=== PATIENT | male | born 1950 | race Caucasian/White ===

== ENCOUNTER → 2017-08-02 | Outpatient (CLI) | payer MEDICARE ==
[~2017-08-02] MED LIST: CONTRAST GIVEN MC PRN; HYDR-2758 PO; cymbalta PO
[2017-08-02] MEDS: IOHEXOL 300 MG/ML 75 ML VIAL IV ONE (11:47)
[2017-08-02] MEDS: IOHEXOL 240 MG/ML 50ML VIAL. PO ONE (11:47)
--- NOTE | 2017-08-02 15:12 | RAD ---
CT chest, abdomen and pelvis Indication: Weight loss, chest abdominal pain. Technique: CT chest, abdomen and pelvis with 75 mL of Omnipaque 300 IV and 30 mL of Omnipaque 240 by mouth with multi planar reformats. Comparison: None Findings: CT chest: History neck base. No axillary, mediastinal or hilar adenopathy. Heart is normal in size. No pericardial or pleural effusion. Erosion is noted of the manubrium with soft tissue component. There is no invasion of the prevascular space. No soft tissue gas. Plate like atelectasis seen within right lung base. No pulmonary nodules. CT abdomen/pelvis: Liver is normal in morphology without focal lesion. Spleen is mildly enlarged measuring 15 cm without focal lesion. No radiopaque gallstones. Fatty atrophy of the pancreatic head and uncinate process. Adrenal glands within normal limits. No suspicious renal lesions. Calcified lymph node in the gastric hepatic ligament recess No retroperitoneal or pelvic adenopathy. Multiple enlarged left inguinal lymph nodes, the largest lymph node measuring 2.2 x 1.8 cm (series 4 image 88). Scattered atherosclerotic disease of the abdominal aorta. No bowel obstruction. Normal appendix. Bladder is within normal limits. Prostate and seminal vesicles are within normal limits. Bilateral pars defect L5 vertebral body with grade 1 anterolisthesis of L5 over S1. Anterior abdominal wall superficial soft tissue nodules. Impression: 1. Significant erosive changes in the manubrium with soft tissue component concerning for chronic osteomyelitis or osseous metastasis. 2. Mild splenomegaly, nonspecific. 3. Enlarged left inguinal lymph nodes, nonspecific may be reactive or secondary to lymphoproliferative disease. Clinically correlate. 4. Right anterior abdominal wall superficial soft tissue nodules. This may represent sebaceous cysts. Correlate with physical exam. PQRS Compliance Statement: One or more of the following individualized dose reduction techniques were utilized for this examination: 1. Automated exposure control 2. Adjustment of the mA and/or kV according to patient size 3. Use of iterative reconstruction technique
== END | disposition home or self-care (01) ==
LOC: CT 13:40
PROVIDERS: ATTEND Family Medicine
DX: R10.9 Unspecified abdominal pain (principal); R16.1 Splenomegaly, not elsewhere classified; R63.4 Abnormal weight loss; Z87.891 Personal history of nicotine dependence
CPT/HCPCS: 71260; 74177; Q9966; Q9967

== ENCOUNTER → 2017-08-08 | Outpatient (CLI) | payer MEDICARE ==
[2017-08-08] VITALS (9 sets, daily range): BP systolic 84–118; BP diastolic 63–84
[~2017-08-08] VITALS: Ht 172.7 cm; Wt 73.9 kg
[~2017-08-08] MED LIST changes: +ALLO300T PO; -CONTRAST GIVEN MC PRN; +DULO60CA6 PO; +HYDR-971 PO; +LIDOCAINE 1% / SOD BICARB 8.4% 20 ML VIAL. IJ ONE; +MIDAZOLAM HCL/PF 2 MG/2 ML VIAL. IV ONE; +MIDAZOLAM HCL/PF 2 MG/2 ML VIAL. ONE; +MORP30TA83 PO; +OXYC-323 PO; +fentaNYL PF VIAL 100 MCG/2 ML VIAL ONE
[2017-08-08 08:11] LABS: BASO % 0 % (0-3); EOS % 1 % (0-3); LYMPH # 0.9 x10^3/uL (1.0-4.8); LYMPH % 9 % (24-48); MEAN CORPUSCULAR HEMOGLOBIN 30 pg (25-35); MEAN CORPUSCULAR HGB CONC 34 g/dL (31-37); MEAN CORPUSCULAR VOLUME 88 fL (79-100); MONO % 7 % (0-9); NEUT % 84 % (31-73); PLATELET COUNT 493 x10^3/uL (140-400); RED BLOOD COUNT 5.37 x10^6/uL (4.30-5.70); RED CELL DISTRIBUTION WIDTH 13.8 % (11.5-14.5); WHITE BLOOD COUNT 10.4 x10^3/uL (4.0-11.0)
[2017-08-08 08:26] LABS: INR 1.1 (0.8-1.1); PROTHROMBIN TIME PATIENT 13.9 SEC (11.7-14.0)
--- NOTE | 2017-08-10 08:52 | RAD ---
CT-guided biopsy of permeative lesion involving the sternum 08/08/2017 Indication: From the lesion involving the sternum. Findings concerning for malignancy. Subcutaneous abdominal masses and mass involving the left thigh also noted. Discussion: The risks and benefits of the procedure discussed the patient. Informed consent was obtained. Timeout procedure was performed. The anterior chest was prepped and draped using sterile barrier technique. CT imaging confirms a lytic lesion involving the sternum. 1% lidocaine with epinephrine was administered to the overlying skin and subcutaneous tissues. Under intermittent CT guidance 17-gauge guiding needle was advanced into the lesion. Multiple 18-gauge core biopsy samples were obtained. [place] were removed and manual pressure held to achieve hemostasis. No immediate competitions were identified. Impression: Technically successful CT-guided biopsy of lytic lesion involving sternum PQRS Compliance Statement: One or more of the following individualized dose reduction techniques were utilized for this examination: 1. Automated exposure control 2. Adjustment of the mA and/or kV according to patient size 3. Use of iterative reconstruction technique
--- NOTE | 2017-08-11 15:35 | PATHOLOGY ---
PATHOLOGY REPORT * * * * * * * * FINAL DIAGNOSIS: Manubrium lesion, biopsy: - Tissue insufficient for diagnosis. See comment. COMMENT: Sections of the manubrium lesion biopsy primarily reveal blood clot. There are a few minute segments of fibrous and edematous tissue which contain a mixed inflammatory infiltrate of neutrophils and chronic inflammatory cells. There are also a few scattered admixed atypical large cells having eosinophilic cytoplasm and enlarged, lobulated hyperchromatic nuclei. A limited panel of immunoperoxidase stains is obtained and yields the following results: AE1/AE3: Atypical large cells negative. CD20: Atypical large cells negative, few small lymphocytes positive. CD3: Insufficient tissue for interpretation. Myeloperoxidase: Neutrophils positive; insufficient atypical large cells for evaluation. CD31: Endothelial cells positive; insufficient atypical large cells for evaluation. In summary, there are few minute tissue fragments containing a few scattered atypical large cells within a mixed inflammatory background. There is insufficient tissue for immunophenotypic analysis. Before recommending obtaining additional biopsy material, would check the results of the leg tumor biopsy performed by Dr. Munguia. Immunoperoxidase stains performed: AE1/AE3, CD20, CD3, MPO, and CD31. (JPM:wero; 08/11/2017) REPORT ELECTRONICALLY SIGNED BY: Tomy Funes M.D. DATE/TIME: 08/11/2017 15:35 * * * * * * * * GROSS PATHOLOGY: The specimen is received in formalin, labeled "Vivek Neville, bone biopsy," and consists of multiple core biopsy fragments of mott-brown calcified and soft tissue measuring 1.1 x 1.0 x 0.1 cm in aggregate. They are entirely submitted in cassette A1 following a brief treatment in decalcification. (SDY; 08/08/2017) INITIAL CPT CODE(S): A; 14491, 26376, 80170, 84700, 98446, 32597, 69500, 77998(5) Professional services performed by [facility] at [address] [address] Technical services performed by [facility] at [address] [place] [address], [address], [place] [address]. SPECIMEN(S) RECEIVED: A.Biopsy of manubrium lesion CLINICAL HISTORY: Tumorous lesion of left thigh and chest and erosive lesion of manubrium. PATIENT: VIVEK NEVILLE /AGE: 1008/05/1950 (Age: 67) PATIENT #: [id number] ALT CASE #: SPECIMEN COLLECTION DATE: 08/08/2017 SPECIMEN RECEIVED DATE: 08/08/2017 [facility] - [id number] [address] - PHONE: [phone] * * * END OF REPORT * * *
== END | disposition home or self-care (01) ==
LOC: INTRAD 07:30
PROVIDERS: ATTEND Family Medicine
DX: M89.9 Disorder of bone, unspecified (principal); F41.9 Anxiety disorder, unspecified; F32.9 Major depressive disorder, single episode, unspecified; Z72.0 Tobacco use; Z79.01 Long term (current) use of anticoagulants; Z87.39 Personal history of other diseases of the musculoskeletal system and connective tissue
CPT/HCPCS: 20220; 36415; 77012; 85025; 85610; 88305; 88311; 88341; 88342; J2250; 99152; 99153

== ENCOUNTER → 2017-10-27 | Outpatient (CLI) | payer MEDICARE ==
[2017-10-27] MEDS: IOHEXOL 240 MG/ML 50ML VIAL. PO (09:30)
[2017-10-27] MEDS: HEPARIN PF 500 UNIT/5 ML DISP.SYRIN. IV (09:45)
[2017-10-27] MEDS: IOHEXOL 300 MG/ML 100ML VIAL. IV (11:04)
== END | disposition home or self-care (01) ==
LOC: NM 10:14
DX: C84.70 Anaplastic large cell lymphoma, ALK-negative, unspecified site (principal); C85.90 Non-Hodgkin lymphoma, unspecified, unspecified site; C79.51 Secondary malignant neoplasm of bone; N40.0 Benign prostatic hyperplasia without lower urinary tract symptoms; M51.37 Other intervertebral disc degeneration, lumbosacral region
CPT/HCPCS: 71260; 74177; 78306; 96374; A9503; Q9966; Q9967

== ENCOUNTER → 2018-06-22 | Outpatient (CLI) | payer MEDICARE ==
[2017-09-11 15:12] VITALS: BP 100/64
[~2018-06-22] MED LIST changes: +HYDR-2762 PO; -LIDOCAINE 1% / SOD BICARB 8.4% 20 ML VIAL. IJ ONE; -MIDAZOLAM HCL/PF 2 MG/2 ML VIAL. IV ONE; -MIDAZOLAM HCL/PF 2 MG/2 ML VIAL. ONE; +PRED50TA PO; -fentaNYL PF VIAL 100 MCG/2 ML VIAL ONE
--- NOTE | 2018-06-22 11:27 | RAD ---
FDG tumor localization scan, PET/CT, 06/22/2018: History: Restaging lymphoma Following IV injection of 13.1 mCi of 18 F-FDG, imaging was performed from the skull base to the proximal thighs. The noncontrast CT component was performed for attenuation correction and anatomic localization purposes rather than for primary diagnosis. The patient's blood glucose level at the time of injection was 123 MG/DL. No previous FDG-PET studies are available at this time for correlative purposes. Physiologic activity is evident in the neck. No abnormal pulmonary or mediastinal FDG uptake is seen. Normal GI tract and urinary tract activity is present in the abdomen and pelvis. No hypermetabolic abdominal or pelvic lesion is seen. Incidental CT findings include the presence of a right Port-A-Cath extending to the atriocaval junction. There is nonspecific prostatic enlargement. Scattered colonic diverticula are present. Mixed lytic and sclerotic foci in the sternum appear unchanged since the CT study from 10/27/2017. No hypermetabolic bony lesion is identified. IMPRESSION: No FDG-PET evidence of recurrent lymphoma.
== END | disposition home or self-care (01) ==
LOC: PETSC 08:31
PROVIDERS: ATTEND Internal Medicine Hematology & Oncology
DX: K57.30 Diverticulosis of large intestine without perforation or abscess without bleeding (principal); N40.0 Benign prostatic hyperplasia without lower urinary tract symptoms; Z80.41 Family history of malignant neoplasm of ovary; Z87.39 Personal history of other diseases of the musculoskeletal system and connective tissue; Z87.891 Personal history of nicotine dependence; Z92.3 Personal history of irradiation
CPT/HCPCS: 78815; A9552

== ENCOUNTER 2018-09-20 14:16 | Emergency (ER) | payer MEDICARE ==
[~2018-09-20] VITALS: Ht 172.7 cm; Wt 70.3 kg
[~2018-09-20 14:16] MED LIST changes: +HYDR-3164 PO; -HYDR-971 PO
[2018-09-20 14:40] VITALS: BP 134/88
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
[2018-09-20] MEDS ORDERED: DIPHTH,PERTUSS(ACELL),TET TOX 0.5 ML DISP.SYRIN. VAX IM ONE (15:00)
[2018-09-20] MEDS ORDERED: ACETAMINOPHEN 500 MG TABLET PO ONE (15:00)
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
[2018-09-20] MEDS ORDERED: AMOX1TAB58 PO (16:21)
== END 2018-09-20 16:25 | disposition home or self-care (01) ==
LOC: ER 14:16
DX: S16.1XXA Strain of muscle, fascia and tendon at neck level, initial encounter (principal); S46.912A Strain of unspecified muscle, fascia and tendon at shoulder and upper arm level, left arm, initial encounter; S80.212A Abrasion, left knee, initial encounter; S60.512A Abrasion of left hand, initial encounter; S09.90XA Unspecified injury of head, initial encounter; R07.81 Pleurodynia; G89.29 Other chronic pain; R51 Headache; C85.90 Non-Hodgkin lymphoma, unspecified, unspecified site; F17.210 Nicotine dependence, cigarettes, uncomplicated; Y04.2XXA Assault by strike against or bumped into by another person, initial encounter; W54.0XXA Bitten by dog, initial encounter; Y93.89 Activity, other specified; Y92.89 Other specified places as the place of occurrence of the external cause; Y99.8 Other external cause status
CPT/HCPCS: 70450; 70486; 71046; 72125; 73030; 90471; 90715; 99284-25

== ENCOUNTER → 2018-11-02 | Outpatient (CLI) | payer MEDICARE ==
[~2018-11-02] MED LIST changes: +AMOX1TAB58 PO; -HYDR-2758 PO; +HYDR-2761 PO; -HYDR-2762 PO; +HYDR-2765 PO; -OXYC-323 PO; +OXYC1TAB15 PO
--- NOTE | 2018-11-02 12:27 | RAD ---
CLINICAL HISTORY: Lymphoma INDICATION: Restaging. COMPARISON: Prior to head CT 06/22/2018 TECHNIQUE: Location of scan: [facility] Radiopharmaceutical Dose: 11.35 mCi F-18 FDG intravenous Blood glucose at time of study: 110 FDG uptake time = 60 minutes. Images were obtained from the mid head to the mid thighs. A low dose, noncontrast CT study was performed for the purpose of attenuation correction and anatomic localization. FINDINGS: Head and Neck: Physiologic activity is seen within the head and neck. Chest: Abnormal focus of increased metabolic activity is seen within the chest. Prominent left hilar and subcarinal lymph nodes are seen, not enlarged by size criteria without definite increased metabolic activity. Abdomen and Pelvis: Physiologic activity is seen within the bowel/colon and renal collecting system. No evidence for bowel obstruction. Diverticula are seen. Appendix is normal. Dilatation of the left common iliac artery is seen. Skeletal: Osseous structures are grossly stable including mottled appearance of the sternum. Reference SUV Values: Mediastinal SUV Max: 3.07 Liver SUV Max: 3.92 IMPRESSION: 1. Grossly stable examination without PET evidence for recurrent lymphoma. Radiation Dosimetry: The radiopharmaceutical used for this exam delivers approximately 0.7 mSv/mCi (70 mRem/mCi) Source: ICRP Publication 106
== END | disposition home or self-care (01) ==
LOC: PETSC 08:55
PROVIDERS: ATTEND Internal Medicine Hematology & Oncology
DX: C84.78 Anaplastic large cell lymphoma, ALK-negative, lymph nodes of multiple sites (principal)
CPT/HCPCS: 78815; A9552

== ENCOUNTER 2018-11-16 13:39 | Emergency (ER) | payer MEDICARE ==
[~2018-11-16] VITALS: Ht 170.2 cm; Wt 70.3 kg
[2018-11-16 14:07] VITALS: BP 130/82
[2018-11-16] MEDS ORDERED: fentaNYL PF VIAL 100 MCG/2 ML VIAL IV ONE (14:15)
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
--- NOTE | 2018-11-16 14:54 | RAD ---
CT of the head without contrast, 11/16/2018: HISTORY: Headache, lymphoma Comparison is made to a study from 09/20/2018. The ventricles are within normal limits in size. There is no shift of the midline structures. There is no evidence of acute intracranial hemorrhage or mass effect. IMPRESSION: No acute intracranial abnormality is detected. Electronically signed by: Kvng Nelson MD (11/16/2018 2:50 PM) [facility]
[2018-11-16 15:12] LABS: BASO % 0 % (0-3); EOS # 0.3 x10^3/uL (0.0-0.7); EOS % 3 % (0-3); HEMATOCRIT 44.9 % (39.0-53.0); HEMOGLOBIN 15.9 g/dL (13.0-17.5); LYMPH # 1.4 x10^3/uL (1.0-4.8); LYMPH % 16 % (24-48); MEAN CORPUSCULAR HEMOGLOBIN 34 pg (25-35); MEAN CORPUSCULAR HGB CONC 35 g/dL (31-37); MEAN CORPUSCULAR VOLUME 96 fL (79-100); MONO # 0.7 x10^3/uL (0.0-1.1); MONO % 8 % (0-9); NEUT # 6.3 x10^3uL (1.8-7.7); NEUT % 72 % (31-73); PLATELET COUNT 224 x10^3/uL (140-400); RED BLOOD COUNT 4.66 x10^6/uL (4.30-5.70); RED CELL DISTRIBUTION WIDTH 17.1 % (11.5-14.5); WHITE BLOOD COUNT 8.7 x10^3/uL (4.0-11.0)
[2018-11-16 15:22] LABS: CALCIUM 9.1 mg/dL (8.5-10.1); CREATININE 0.9 mg/dL (0.7-1.3); GFR 84.4; POTASSIUM 3.7 mmol/L (3.5-5.1)
[2018-11-16 15:25] LABS: BILIRUBIN,URINE SMALL (NEG); CLARITY,URINE CLEAR; COLOR,URINE YELLOW; NITRITE,URINE NEGATIVE (NEG); PH,URINE 5.5; PROTEIN,URINE NEGATIVE (NEG-TRACE)
[2018-11-16 15:30] LABS: ALBUMIN 3.5 g/dL (3.4-5.0); ALBUMIN/GLOBULIN RATIO 0.9 (1.0-1.7); MAGNESIUM 2.3 mg/dL (1.8-2.4); TOTAL BILIRUBIN 0.4 mg/dL (0.2-1.0); TOTAL PROTEIN 7.5 g/dL (6.4-8.2)
[2018-11-16 15:35] LABS: BACTERIA,URINE 0 /HPF (0-FEW); RBC,URINE 0 /HPF (0-2); SQUAMOUS EPITHELIAL CELL,UR FEW /LPF; WBC,URINE 0 /HPF (0-4)
[2018-11-16] MEDS ORDERED: GABA300C18 PO (15:37)
[2018-11-16] MEDS: GABAPENTIN 100 MG CAPSULE. PO STA (15:46)
== END 2018-11-16 16:12 | disposition home or self-care (01) ==
LOC: ER 13:39
DX: G62.89 Other specified polyneuropathies (principal); R51 Headache; R20.2 Paresthesia of skin; M54.6 Pain in thoracic spine; M19.90 Unspecified osteoarthritis, unspecified site; Z85.830 Personal history of malignant neoplasm of bone
CPT/HCPCS: 36415; 70450; 71045; 80053; 81001; 83735; 85025; 99284-25

== ENCOUNTER → 2019-02-22 | Outpatient (CLI) | payer MEDICARE ==
[~2019-02-22] MED LIST changes: +GABA300C18 PO
--- NOTE | 2019-02-22 17:06 | RAD ---
Examination: PET W CT SKULL TO MIDTHIGH History: Lymphoma restaging Comparison/Correlation: 11/02/2018 PET/CT skull base to midthigh Findings: 15.75 mCi F-18 FDG was intravenously administered for PET/CT exam from skull base to the midthigh. Blood glucose at the time of injection was 102 mg/dL. Hepatic SUV max is 3.1. Uptake of radiotracer involving the partially visualized head and neck is unremarkable. Uptake of radiotracer involving the thorax and abdomen as well as pelvis is unremarkable. Right-sided central venous infusion port catheter is present. Lung denise are clear. No enlarged lymph nodes. No radiopaque collecting system calculi. Diverticulosis noted. Prostatomegaly evident. L5-S1 disc space narrowing is present with grade 1-2 anterolisthesis. Bilateral L5 pars interarticularis fractures are present. Impression: No abnormal uptake to suggest active FDG avid neoplastic or metastatic disease.
== END | disposition home or self-care (01) ==
LOC: PETSC 12:27
PROVIDERS: ATTEND Internal Medicine Hematology & Oncology
DX: C84.78 Anaplastic large cell lymphoma, ALK-negative, lymph nodes of multiple sites (principal); K57.90 Diverticulosis of intestine, part unspecified, without perforation or abscess without bleeding; M48.07 Spinal stenosis, lumbosacral region; Z95.9 Presence of cardiac and vascular implant and graft, unspecified
CPT/HCPCS: 78815; A9552

== ENCOUNTER → 2019-06-07 | Outpatient (CLI) | payer MEDICARE ==
--- NOTE | 2019-06-07 19:55 | RAD ---
Examination: PET W CT SKULL TO MIDTHIGH History: Lymphoma restaging Comparison/Correlation: 02/22/2019 PET/CT skull base to midthigh Findings: 13.7 mCi F-18 FDG was intravenously administered for purposes of PET/CT exam from the skull base to the proximal thighs. Serum blood glucose level of 85 mg/dL noted at the time the patient's visit. Uptake of radiotracer involving the visualized head and neck is normal. Uptake of radiotracer involving the chest, abdomen, and pelvis is unremarkable. No enlarged lymph nodes identified. Right sided effusion port with associated catheter identified. No suspicious pulmonary nodule or mass. No infiltrates. Gallbladder fossa is unremarkable. No radiopaque collecting system calculi. Left common iliac artery aneurysm measuring up to 2.7 cm diameter noted. Diverticulosis of the colon is noted. Prostate gland is enlarged measuring 5.2 cm transverse. Bilateral L5 pars interarticularis fractures are again seen. Significant L5-S1 disc space narrowing is present. Grade 1-2 anterolisthesis of L5 over S1. Impression: No abnormal uptake to suggest active metastatic disease. No abnormal lymph node uptake.
== END | disposition home or self-care (01) ==
LOC: PETSC 08:27
PROVIDERS: ATTEND Internal Medicine Hematology & Oncology
DX: C84.78 Anaplastic large cell lymphoma, ALK-negative, lymph nodes of multiple sites (principal); I72.3 Aneurysm of iliac artery; K57.30 Diverticulosis of large intestine without perforation or abscess without bleeding; N40.0 Benign prostatic hyperplasia without lower urinary tract symptoms; M84.48XA Pathological fracture, other site, initial encounter for fracture; M43.17 Spondylolisthesis, lumbosacral region
CPT/HCPCS: 78815; A9552

== ENCOUNTER → 2020-03-21 | Outpatient (CLI) | payer MEDICARE ==
--- NOTE | 2020-03-21 16:40 | RAD ---
EXAM: PET/CT SCAN INDICATION: Restaging lymphoma COMPARISON: PET/CT 06/07/2019 PET/CT SCAN TECHNIQUE: Approximately 60 minutes after the intravenous administration of 15.8 millicuries of F-18 fluorodeoxyglucose (FDG), PET imaging of the body from the base of the skull through the mid thighs was performed. Reconstruction in all 3 planes were performed. The patient's serum glucose level at the time of the F-18 FDG administration was 97 mg/dL. A noncontrast CT scan was obtained for attenuation correction and anatomic localization purposes only and is not considered a diagnostic CT scan. PQRS compliance Statement One or more of the following individualized dose reduction techniques were utilized for this study: 1. Automated exposure control 2. Adjustment of the mA and/or kV according to patient size 3. Use of iterative reconstruction technique FINDINGS: HEAD AND NECK: There is physiologic radiotracer uptake. No lymphadenopathy or abnormal radiotracer uptake. CHEST: No lymphadenopathy or abnormal radiotracer uptake. Right chest wall port with tip at the superior cavoatrial junction is unchanged. There are calcified mediastinal and left hilar lymph nodes. Mild atelectasis in the dependent lung bases. No pleural effusion. ABDOMEN AND PELVIS: There is physiologic radiotracer uptake. No lymphadenopathy or abnormal radiotracer uptake. SUV max in the liver is 2.1. Left common iliac artery aneurysm measuring 2.7 cm is unchanged. Mild calcified aortoiliac atherosclerosis. Mild sigmoid diverticulosis. Prostate gland is enlarged. MUSCULOSKELETAL: No abnormal radiotracer uptake. There are bilateral L5 pars defects with grade 1 spondylolisthesis and severe degenerative disc disease at L5-S1. IMPRESSION: No PET/CT evidence of metabolically active metastatic disease. Electronically signed by: Neelima Hwang MD (03/21/2020 4:37 PM) [facility]
== END | disposition home or self-care (01) ==
LOC: PETSC 09:55
PROVIDERS: ATTEND Internal Medicine Hematology & Oncology
DX: C84.78 Anaplastic large cell lymphoma, ALK-negative, lymph nodes of multiple sites (principal); J98.11 Atelectasis; I72.3 Aneurysm of iliac artery; I70.0 Atherosclerosis of aorta; K57.30 Diverticulosis of large intestine without perforation or abscess without bleeding; I70.8 Atherosclerosis of other arteries; N40.0 Benign prostatic hyperplasia without lower urinary tract symptoms; M43.17 Spondylolisthesis, lumbosacral region; M51.37 Other intervertebral disc degeneration, lumbosacral region; I89.8 Other specified noninfective disorders of lymphatic vessels and lymph nodes
CPT/HCPCS: 78815; A9552